=== PATIENT | female | born 1960 | race African-American/Black ===

== ENCOUNTER → 2017-07-09 | Outpatient (CLI) | payer BC ==
[~2017-07-09] MED LIST: AMOX TR-K CLV1 EAC4 PO; BREO ELLIPTA I1 EACH IH; VENTOLIN HFA18 GM IH; WESTCORT 0.2% C15 GM TP
== END | disposition home or self-care (01) ==
LOC: OPR 07:26 → EDSTATUS 08:00
PROC: BB241ZZ Computerized Tomography (CT Scan) of Bilateral Lungs using Low Osmolar Contrast (ICD-10-PCS; principal; 2017-07-09)
DX: J98.4 Other disorders of lung (principal); Z53.8 Procedure and treatment not carried out for other reasons; Z87.891 Personal history of nicotine dependence; J45.909 Unspecified asthma, uncomplicated
CPT/HCPCS: 71250